=== PATIENT | female | born 1980 | race Caucasian/White ===

== ENCOUNTER 2018-12-09 10:47 | Emergency (ER) | payer BC ==
[2018-12-09 10:48] VITALS: BMI 23.2
[2018-12-09] MEDS ORDERED: Sodium Chloride 0.9% 1,000 ML IV STA (11:16)
[2018-12-09 11:37] VITALS: TEMP 97.9
--- NOTE | 2018-12-09 11:45 | ED PDOC ---
Arrival/HPI <Zander Luu - Last Filed: 12/09/18 13:50> - General Historian: Patient - History of Present Illness Narrative History of Present Illness (Text): 12/09/18 11:41 38F presents to [facility] ED after 1 week of flu like symptoms as well as new onset rash. Patient reported 1 week ago she began experiencing fever/malaise and cough; over the past week flu like symptoms improved however new onset symptoms of arthalgias and rash began. Patient also reported some associated sore throat. Rash started on upper and lower extremities and has not progressed to trunk or head. No complaints of abdominal pain, n/v/d/c, hematuria/dysuria. Patient does not complain of chest pain or sob. No recent travel or sick contact exposure. Of note patient had ear infection like symptoms last week and was being treated w/ antibiotics during the past week. Time/Duration: Prior to Arrival, > week Symptom Onset: Gradual Symptom Course: Worsening Quality: Other <Abad Vences - Last Filed: 12/09/18 15:04> - General Chief Complaint: Flu-like Symptoms Time Seen by Provider: 12/09/18 10:50 Past Medical History - Provider Review Nursing Documentation Reviewed: Yes - Tetanus Immunization Tetanus Immunization: Unknown - Past Medical History Past Medical History: No Previous - Psychiatric Hx Depression: No Hx Emotional Abuse: No Hx Physical Abuse: No Hx Substance Use: No - Past Surgical History Past Surgical History: No Previous - Anesthesia Hx Anesthesia: Yes Hx Anesthesia Reactions: No Hx Malignant Hyperthermia: No - Suicidal Assessment Feels Threatened In Home Enviroment: No <Abad Vences - Last Filed: 12/09/18 15:04> Family/Social History - Physician Review Nursing Documentation Reviewed: Yes Family/Social History: Unknown Family HX Smoking Status: Never Smoked Hx Alcohol Use: Yes Frequency of alcohol use: Socially Hx Substance Use: No Hx Substance Use Treatment: No <Abad Vences - Last Filed: 12/09/18 15:04> Allergies/Home Meds <Zander Luu - Last Filed: 12/09/18 13:50> <Abad Vences - Last Filed: 12/09/18 15:04> Allergies/Adverse Reactions: Allergies No Known Allergies Allergy (Verified 03/11/14 15:32) Home Medications: Home Meds Medication Instructions Recorded Confirmed Ethinyl Estradiol/Drospirenone 1 tab PO DAILY 03/11/14 03/11/14 [Chacha 28 Tablet] Review of Systems - Review of Systems Constitutional: Fatigue, Fevers Eyes: Normal ENT: Sore Throat Respiratory: Cough Cardiovascular: Normal Gastrointestinal: Normal. absent: Abdominal Pain, Constipation, Diarrhea, Nausea, Vomiting Genitourinary Female: Normal Musculoskeletal: Arthralgias Skin: Rash Neurological: Normal Endocrine: Normal Hemo/Lymphatic: Normal Psychiatric: Normal <Abad Vences - Last Filed: 12/09/18 15:04> Physical Exam Vital Signs Temp Pulse Resp BP Pulse Ox 12/09/18 12:54 84 16 120/61 100 12/09/18 10:48 97.9 F 90 18 104/75 98 <Zander Luu - Last Filed: 12/09/18 13:50> Vital Signs Temp Pulse Resp BP Pulse Ox 12/09/18 10:48 97.9 F 90 18 104/75 98 Temperature: Afebrile Blood Pressure: Normal Pulse: Regular Respiratory Rate: Normal Appearance: Positive for: Well-Appearing, Non-Toxic, Comfortable Pain Distress: None Mental Status: Positive for: Alert and Oriented X 3 - Systems Exam Head: Present: Atraumatic, Normocephalic Pupils: Present: PERRL Extroacular Muscles: Present: EOMI Conjunctiva: Present: Normal Ears: Present: Normal, Normal Canal. No: Erythema, TM Bulging, Fluid, TM Perf Mouth: Present: Moist Mucous Membranes Pharnyx: Present: ERYTHEMA Neck: Present: Normal Range of Motion Respiratory/Chest: Present: Clear to Auscultation, Good Air Exchange. No: Respiratory Distress, Accessory Muscle Use Cardiovascular: Present: Regular Rate and Rhythm, Normal S1, S2. No: Murmurs Abdomen: Present: Other (No rash on back or trunk). No: Tenderness, Distention, Peritoneal Signs Back: Present: Normal Inspection Upper Extremity: Present: Normal Inspection, Tenderness (elbows/ wrists; swelling in wrists appreciated), Swelling (wrists bl), Other (rash - maculopapular 1-2cm scattered thorughout upper extremities - sparing of palms). No: Cyanosis, Edema Lower Extremity: Present: Normal Inspection, NORMAL PULSES, Capillary Refill < 2 s, Other (rash - maculopapular 1-2cm scattered thorughout lowerextremities - sparing of soles of feet). No: Edema Neurological: Present: GCS=15, CN II-XII Intact, Speech Normal Skin: Present: Rashes Psychiatric: Present: Alert, Oriented x 3, Normal Insight, Normal Concentration <Abad Vences - Last Filed: 12/09/18 15:04> Medical Decision Making - Lab Interpretations Lab Results: PT 12.1 SECONDS (9.4-12.5) 12/09/18 11:50 INR 1.07 12/09/18 11:50 APTT 28.1 Seconds (26.9-38.3) 12/09/18 11:50 D-Dimer, Quantitative 450 ng/mlDDU (0-243) H 12/09/18 11:50 Troponin I < 0.01 ng/mL 12/09/18 11:50 Total Bilirubin 0.6 mg/dL (0.2-1.3) 12/09/18 11:50 AST 22 U/L (14-36) 12/09/18 11:50 ALT 24 U/L (7-56) 12/09/18 11:50 Alkaline Phosphatase 73 U/L (38-126) 12/09/18 11:50 Total Protein 8.0 g/dL (5.8-8.3) 12/09/18 11:50 Albumin 4.1 g/dL (3.0-4.8) 12/09/18 11:50 Globulin 4.0 gm/dL 12/09/18 11:50 Albumin/Globulin Ratio 1.0 (1.1-1.8) L 12/09/18 11:50 Lipase 49 U/L (23-300) 12/09/18 11:50 Urine Color Yellow (YELLOW) 12/09/18 12:06 Urine Appearance Clear (CLEAR) 12/09/18 12:06 Urine pH 5.5 (4.7-8.0) 12/09/18 12:06 Ur Specific [place] >= 1.030 (1.005-1.035) 12/09/18 12:06 Urine Protein Trace mg/dL (<30 mg/dL) H 12/09/18 12:06 Urine Glucose (UA) Negative mg/dL (NEGATIVE) 12/09/18 12:06 Urine Ketones Negative mg/dL (NEGATIVE) 12/09/18 12:06 Urine Blood Small (NEGATIVE) H 12/09/18 12:06 Urine Nitrate Negative (NEGATIVE) 12/09/18 12:06 Urine Bilirubin Negative (NEGATIVE) 12/09/18 12:06 Urine Urobilinogen 0.2 E.U./dL (<1 E.U./dL) 12/09/18 12:06 Ur Leukocyte Esterase Trace Cecile/uL (NEGATIVE) H 12/09/18 12:06 Urine RBC 10 - 15 /hpf (0-2) H 12/09/18 12:06 Urine WBC 2 - 5 /hpf (0-6) 12/09/18 12:06 Ur Epithelial Cells Many /hpf (0-5) H 12/09/18 12:06 Urine Bacteria Many /hpf (NONE) 12/09/18 12:06 Urine Other Fiber /hpf 12/09/18 12:06 - RAD Interpretation Radiology Orders: 12/09/18 11:14 CHEST PORTABLE [RAD] Stat - Medication Orders Current Medication Orders: Discontinued Medications Sodium Chloride (Sodium Chloride 0.9%) 1,000 mls @ 999 mls/hr IV .Q1H1M STA Stop: 12/09/18 12:16 Last Admin: 12/09/18 11:50 Dose: 999 mls/hr eMAR Start Stop Document 12/09/18 11:50 KV (Rec: 12/09/18 11:52 KV [id number]) Intravenous Solution Start Date 12/09/18 Start Time 11:50 Ketorolac Tromethamine (Toradol) 30 mg IVP STAT STA Stop: 12/09/18 11:16 Last Admin: 12/09/18 11:52 Dose: 30 mg MAR Pain Assessment Document 12/09/18 11:52 KV (Rec: 12/09/18 11:53 KV [id number]) Pain Reassessment Is this a pain reassessment? No IVP Administration Document 12/09/18 11:52 KV (Rec: 12/09/18 11:53 KV [id number]) Charges for Administration # of IVP Administrations 1 Re-Assess: MAR Pain Assessment Document 12/09/18 12:52 KV (Rec: 12/09/18 13:11 KV [id number]) Pain Reassessment Is this a pain reassessment? Yes Sleep Is patient sleeping during reassessment? No Presence of Pain Presence of Pain Yes Pain Scale Used Protocol: PSCALES Pain Scale Used Numeric Location Left, Right or Bilateral Right Pain Location Body Site Hand Description Description Burning Intensity of Pain at present 1 Ketorolac Tromethamine (Toradol) 30 mg IVP STAT STA Stop: 12/09/18 11:28 Last Admin: 12/09/18 11:53 Dose: Not Given Non-Admin Reason: Duplicate Methylprednisolone (Solu-Medrol) 125 mg IVP STAT STA Stop: 12/09/18 12:25 Last Admin: 12/09/18 12:51 Dose: 125 mg IVP Administration Document 12/09/18 12:51 KV (Rec: 12/09/18 12:52 KV [id number]) Charges for Administration # of IVP Administrations 1 <Zander Luu - Last Filed: 12/09/18 13:50> ED Course and Treatment: 12/09/18 11:49 38F w/ s/s of viral exanthem and arthritic changes. Outpt workup revealed negative CYNTHIA, w/ elevated WBC Afebrile at time of evaluation Plan: CBC/CMP ESR/CRP MONOSPOT CPK LIPASE TROP / DDIMER PT/PTT RAPID FLU CXR / UA IVF TORADOL Solumedrol Progress Note: 12/09/18 13:19 CBC/CMP wnl ESR elevated Monospot results will be called into patient CPK results will be called into patient Troponin wnl Rapid Flu negative Rash resolved w/ Toradol + Solumedrol Will DC HOME w/ appropriate follow up to primary, ID, and Rheum. - RAD Interpretation Radiology Orders: 12/09/18 11:14 CHEST PORTABLE [RAD] Stat - Medication Orders Current Medication Orders: Sodium Chloride (Sodium Chloride 0.9%) 1,000 mls @ 999 mls/hr IV .Q1H1M STA Stop: 12/09/18 12:16 Discontinued Medications Ketorolac Tromethamine (Toradol) 30 mg IVP STAT STA Stop: 12/09/18 11:16 Ketorolac Tromethamine (Toradol) 30 mg IVP STAT STA Stop: 12/09/18 11:28 <Abad Vences - Last Filed: 12/09/18 15:04> Disposition/Present on Arrival <Zander Luu - Last Filed: 12/09/18 13:50> - Present on Arrival Any Indicators Present on Arrival: No History of DVT/PE: No History of Uncontrolled Diabetes: No Urinary Catheter: No History of Decub. Ulcer: No History Surgical Site Infection Following: None - Disposition Have Diagnosis and Disposition been Completed?: Yes Disposition Time: 13:29 Patient Plan: Discharge <Abad Vences - Last Filed: 12/09/18 15:04> - Disposition Diagnosis: Rash, Joint pain, Viral exanthem Disposition: HOME/ ROUTINE Condition: STABLE Discharge Instructions (ExitCare): Skin Rash (DC), Muscle and Bone Pain (DC) Print Language: TURKMEN Additional Instructions: Please follow up with your PCP Take medications as prescribed Schedule an appointment with the infectious disease specialist and rhuematologist . Prescriptions: Methylprednisolone [Medrol Dose Pack (21 tabs)] 4 mg PO DAILY #21 mg Referrals: Dread Gil MD [Staff Provider] - Follow up with primary Livan Perez MD [Medical Doctor] - Follow up with primary Catherine Garcia MD [Primary Care Provider] - Follow up with primary Forms: [facility] ([place]), WORK NOTE
[2018-12-09 12:01] LABS: BASO # 0.01 K/mm3 (0.0-2.0); BASO % 0.1 % (0.0-3.0); EOS # 0.1 (0.0-0.7); EOS % 0.9 % (1.5-5.0); HEMOGLOBIN 13.1 g/dL (12.0-16.0); LYMPH # 1.6 (1.2-3.4); MEAN CELL VOLUME 90.2 fl (80.0-105.0); MEAN CORPUSCULAR HEMOGLOBIN 29.9 pg (25.0-35.0); MEAN CORPUSCULAR HGB CONC 33.2 g/dl (31.0-37.0); MEAN PLATELET VOLUME 9.3 fl (7.0-11.0); MONO # 0.6 (0.1-0.6); RBC 4.38 10^6/uL (3.5-6.1); RED CELL DISTRIBUTION WIDTH 12.2 % (11.5-14.5); WHITE BLOOD COUNT 11.7 10^3/uL (4.5-11.0)
[2018-12-09 12:10] LABS: INR 1.07; PARTIAL THROMBOPLASTIN TIME 28.1 Seconds (26.9-38.3); PROTHROMBIN TIME 12.1 SECONDS (9.4-12.5)
[2018-12-09 12:11] LABS: ALBUMIN 4.1 g/dL (3.0-4.8); ALT/SGPT 24 U/L (7-56); AST/SGOT 22 U/L (14-36); BLOOD UREA NITROGEN 15 mg/dL (7-21); CALCIUM 9.4 mg/dL (8.4-10.5); GFR NON-AFRICAN AMERICAN > 60; LIPASE 49 U/L (23-300)
[2018-12-09 12:22] LABS: TROPONIN I < 0.01 ng/mL
[2018-12-09 12:42] LABS: PH,URINE 5.5 (4.7-8.0); URINE BILIRUBIN NEGATIVE (NEGATIVE); URINE BLOOD SMALL (NEGATIVE); URINE GLUCOSE (UA) NEGATIVE (NEGATIVE); URINE LEUKOCYTE ESTERASE TRACE Leu/uL (NEGATIVE); URINE PROTEIN TRACE mg/dL (<30 mg/dL); URINE UROBILINOGEN 0.2 E.U./dL (<1 E.U./dL)
[2018-12-09 12:44] LABS: URINE APPEARANCE CLEAR (CLEAR); URINE COLOR YELLOW (YELLOW)
[2018-12-09 12:46] LABS: URINE BACTERIA MANY /hpf; URINE EPITHELIAL CELLS MANY /hpf (0-5)
[2018-12-09 12:54] VITALS: BP 120/61; PULSE 84; RESP 16; O2SAT 100
--- NOTE | 2018-12-09 13:02 | RAD ---
Date of service: 12/09/2018 HISTORY: flu like illness COMPARISON: No prior. FINDINGS: LUNGS: No active pulmonary disease. PLEURA: No significant pleural effusion identified, no pneumothorax apparent. CARDIOVASCULAR: No aortic atherosclerotic calcification present. Normal cardiac size. No pulmonary vascular congestion. OSSEOUS STRUCTURES: No significant abnormalities. VISUALIZED UPPER ABDOMEN: Normal. OTHER FINDINGS: None. IMPRESSION: No acute cardiopulmonary disease appreciated.
== END 2018-12-09 13:53 | disposition home or self-care (01) ==
LOC: ED 10:47
DX: B09 Unspecified viral infection characterized by skin and mucous membrane lesions (principal); M25.50 Pain in unspecified joint; R21 Rash and other nonspecific skin eruption
CPT/HCPCS: 71045; 80053; 81001; 81025; 82550; 83690; 84484; 85025; 85378; 85610; 85651; 85730; 86140; 86308; 87086; 87804; 96374; 96375; 99284; J1885; J2930; J7030